=== PATIENT | male | born 1975 | race Caucasian/White ===

== ENCOUNTER 2018-06-25 13:03 | Outpatient (CLI) | payer OTHER ==
--- NOTE | 2018-06-25 14:40 | RAD ---
RADIOGRAPH CERVICAL SPINE 5 VIEWS: 06/25/2018 HISTORY: A 43-year-old male with nontraumatic severe cervicalgia. COMPARISON: 04/09/2006 TECHNIQUE: Swimmer's, Fuchs, open-mouth, AP, and lateral views. FINDINGS: There is a new finding of mild narrowing at the anterior aspects of the C5-C6 and C6-C7 disk spaces. The rest of the disk spaces are maintained. There is another new finding of slight kyphosis, center ed at C5-C6. Alignment is normal. No high grade facet DJD. The atlantoaxial joints are normal. No prevertebral soft tissue swelling. IMPRESSION: 1. Mild degenerative disk changes at C5-C6 and C6-C7. 2. Reversal of curvature, suggestive of muscle spasm. JN [] POS: [facility]
== END 2018-06-25 13:04 | disposition home or self-care (01) ==
LOC: SCSRAD 13:03
PROVIDERS: ATTEND Family Medicine
DX: M50.322 Other cervical disc degeneration at C5-C6 level (principal)
CPT/HCPCS: 72040

== ENCOUNTER 2019-03-25 12:45 | Outpatient (CLI) | payer OTHER ==
--- NOTE | 2019-03-25 13:16 | RAD ---
Exam: XR Foot Rt 3 View STANDARD HISTORY: History of gout. Redness over distal metatarsals. COMPARISON: 09/27/2007. FINDINGS: There is suggestion of a very tiny erosion involving the medial aspect of the right metatarsal head. There is no joint space narrowing or additional significant erosions visualized. There is periosteal reaction along the lateral aspect of the distal tibia likely due to prior injury. No acute fracture, dislocation, or other acute osseous abnormality is identified. IMPRESSION: No acute osseous abnormality is identified. Suggestion of tiny erosion involving the lateral and dorsal aspect of the right metatarsal head.
== END 2019-03-25 12:46 | disposition home or self-care (01) ==
LOC: SCSRAD 12:45
PROVIDERS: ATTEND Family Medicine
DX: M10.9 Gout, unspecified (principal)

== ENCOUNTER 2019-04-28 07:45 | Outpatient (CLI) | payer OTHER ==
[2019-04-28 10:41] LABS: #Basophils 0.1 thou/uL (0.0-0.2); #Eosinphils 0.3 thou/uL (0.0-0.7); #Lymphocytes 2.7 thou/uL (1.20-3.40); #Monocytes 0.6 thou/uL (0.11-0.59); #Neutrophils 3.4 thou/uL (1.40-6.50); %Basophils 1.8 % (0.0-1.0); %Eosinophils 4.7 % (0.0-10.0); %Lymphocytes 37.3 % (21.0-51.0); %Monocytes 8.4 % (0.0-10.0); %Neutrophils 47.8 % (42.0-75.0); Hemoglobin 16.4 g/dL (14.0-18.0); Mean Corpuscular HGB CONC 34.9 g/dL (32.0-36.0); Mean Corpuscular Hemoglobin 32.6 pg (27.0-31.0); Mean Corpuscular Volume 93.5 fL (78.0-98.0); Mean Platelet Volume 8.2 fL (7.4-10.4); Platelet Count 238 thou/uL (130-400); RBC Distribution Width 11.5 % (11.5-14.5); Red Blood Cell (RBC) Count 5.03 mill/uL (4.70-6.10); White Blood Cell (WBC) Count 7.2 thou/uL (4.8-10.8)
== END 2019-04-28 07:46 | disposition home or self-care (01) ==
LOC: LABBT 07:45
PROVIDERS: ATTEND Orthopaedic Surgery
DX: Z01.812 Encounter for preprocedural laboratory examination (principal); M75.101 Unspecified rotator cuff tear or rupture of right shoulder, not specified as traumatic
CPT/HCPCS: 85025

== ENCOUNTER 2019-04-29 05:37 | Day surgery (SDC) | payer OTHER ==
[2019-04-29] MEDS ORDERED: Midazolam HCl 2 mg/2 ml Vial ONE (06:30)
[2019-04-29] MEDS ORDERED: Fentanyl 100 MCG/2 ML VIAL ONE ×2 (06:30→07:04)
[2019-04-29] MEDS ORDERED: Ondansetron PF 4 MG/2 ML Vial IVP PRN (06:53)
[2019-04-29] MEDS ORDERED: traMADol HCl 50 MG TAB PO PRN ×2 (06:53)
[2019-04-29] MEDS ORDERED: Ropivacaine 0.2% 550 ML 550 ML NERVE BLCK SCH (06:53)
[2019-04-29] MEDS ORDERED: HYDROcodone/Acetaminophen 5/325 mg Tablet PO PRN ×2 (06:53)
[2019-04-29] MEDS ORDERED: Promethazine HCl 25 MG/ML VIAL IM PRN (06:53)
[2019-04-29] MEDS ORDERED: Zolpidem Tartrate 5 MG TAB PO PRN (06:53)
[2019-04-29] MEDS ORDERED: Bupivacaine HCl 0.5%/Epinephrine 1:200,000/PF 30 ml Vial ONE (07:38)
--- NOTE | 2019-04-29 12:55 | HP ---
CHIEF COMPLAINT: Right shoulder pain. 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 The patient has MRI of his neck and shoulder. Previous facet joint injections with incomplete relief. The pain is increased since last seen. Pain could be severe. Back pain is present. Pain medications for pain relief. PAST MEDICAL HISTORY: Low back pain, right shoulder pain, and hearing loss. SURGICAL HISTORY: None. ALLERGIES: NO KNOWN DRUG ALLERGIES. MEDICATIONS: None. SOCIAL HISTORY: Smoker. Occasional alcohol. No illicit drug use. 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 PHYSICAL EXAMINATION: GENERAL: Alert and oriented man, in no acute distress. EXTREMITIES: Focussed exam of the right upper extremity shows pain at about 140 degrees external rotation. Pain with range of motion of his supraspinatus, pain with Rich's. He is neurovascularly intact distally. No incisions. Brisk cap refill. DIAGNOSTIC STUDIES: Previous MRI of his shoulder showed a full-thickness rotator cuff tear and bulging disk. I discussed with the patient risks and benefits of a rotator cuff repair to include pain, scar, bleeding, infection, damage to vital structures. I will also perform biceps tenodesis decompression as needed. Discussed risks and benefits of procedures to include deformity, need for further surgeries, failure of repair, loss of life or limb, damage to nerves, arteries and tendons, decreased range of motion and strength. The patient understood the risks and benefits and elects to proceed. We will proceed with a right rotator cuff repair, possible biceps tenodesis and decompression. Job ID: [id number]
--- NOTE | 2019-04-30 06:40 | OP ---
DATE OF PROCEDURE: 04/29/2019 PREOPERATIVE DIAGNOSIS: Right high-grade full-thickness rotator cuff tear. POSTOPERATIVE DIAGNOSIS: Right high-grade full-thickness rotator cuff tear. PROCEDURE PERFORMED: Right rotator cuff repair, arthroscopic. 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 ANESTHESIA: The patient received a general endotracheal intubation with interscalene block. ESTIMATED BLOOD LOSS: 30 mL. TOURNIQUET TIME: None. IMPLANTS: A 5.5 corkscrew 4.57 SwiveLock. COMPLICATIONS: None. HISTORY OF PRESENT ILLNESS: Mr. Collado is a 43-year-old male with right shoulder pain for several months. The patient had sleep disturbance, pain with overhead activities, failed conservative management, desired to have his right near full-thickness rotator cuff repair. I discussed risks and benefits of the procedure including pain, scar, bleeding, infection, damage to vital structures, decreased range of motion and strength, need for further surgeries, damage to vital structures, loss of life or limb. The patient understood the risks and benefits of the procedure, elected to proceed. DESCRIPTION OF PROCEDURE: Time-out was performed designating the patient's right upper extremity upper extremity as the operative site based on site, consent, and marking. After time-out, the patient's posterior working portal was placed and used a spinal needle to place within the rotator interval to visualize the joint. There was some degree of degenerative labral tearing, which was gently debrided. I looked around the labrum with intact biceps to its root. There was no subscap tear. Intra-articular rotator cuff tear was noted. To look for any cartilage defects, were not there. I then moved subacromially with fair amount of bursa as well as subacromial bone. I exposed and found the patient's rotator cuff tear. I cleaned it up with a shaver to create bleeding bone. I placed a 5.5 corkscrew. After I had placed a lateral working portal and another posterolateral portal to help place my anchor. I passed the anchor, had good fixation, passed 4 stitches, those 2 and 2, horizontal mattress sutures, used those and smashed down laterally forcing the SwiveLock to help compress the dog-ear down. We washed and we closed with 3-0 nylon. The patient will begin elbow, wrist, and hand motion. He will follow back to see me in 2 weeks, we will have to see over that time. Job ID: [id number]
== END 2019-04-29 11:00 | disposition home or self-care (01) ==
LOC: SDC 05:37
PROVIDERS: ATTEND Orthopaedic Surgery
PROC: 0LQ14ZZ Repair Right Shoulder Tendon, Percutaneous Endoscopic Approach (ICD-10-PCS; principal; 2019-04-29)
DX: M75.101 Unspecified rotator cuff tear or rupture of right shoulder, not specified as traumatic (principal); S43.401A Unspecified sprain of right shoulder joint, initial encounter; F17.200 Nicotine dependence, unspecified, uncomplicated; H91.90 Unspecified hearing loss, unspecified ear
CPT/HCPCS: A4306; C1713; J0670; J0690; J2250; J2795; J3010

== ENCOUNTER 2019-05-24 14:34 | Outpatient (CLI) | payer OTHER ==
--- NOTE | 2019-05-24 15:50 | ULT ---
VENOUS ULTRASOUND RIGHT UPPER EXTREMITY: Indication: Pain. FINDINGS: There is appropriate compressibility and flow within the venous deep vein system of the right upper e xtremity. Grayscale, doppler evaluation and spectral analysis performed. IMPRESSION: No DVT of the imaged right upper extremity. POS: [facility]
== END 2019-05-24 14:35 | disposition home or self-care (01) ==
LOC: SCSULT 14:34
PROVIDERS: ATTEND Orthopaedic Surgery
DX: M79.621 Pain in right upper arm (principal)

== ENCOUNTER 2019-12-08 11:44 | Outpatient (CLI) | payer OTHER ==
--- NOTE | 2019-12-08 13:41 | RAD ---
LEFT KNEE 4 VIEWS: HISTORY: Pain and swelling left knee: COMPARISON: Comparison is made with the exam of 05/14/2014. FINDINGS/IMPRESSION: No fracture, dislocation, or bony destruction is identified. There is fullness in the suprapatellar pouch suspicious for a joint effusion. POS: [facility]
== END 2019-12-08 11:45 | disposition home or self-care (01) ==
LOC: SCSRAD 11:44
PROVIDERS: ATTEND Family Medicine
DX: M25.562 Pain in left knee (principal)

== ENCOUNTER 2025-06-08 09:14 | Outpatient (CLI) | payer OTHER | END 2025-06-08 09:15 | disposition home or self-care (01) | LOC: SCSRAD 09:14 | PROVIDERS: ATTEND Nurse Practitioner Family | DX: M79.671 Pain in right foot (principal) ==